=== PATIENT | female | born 1985 | race Caucasian/White ===

== ENCOUNTER 2024-07-04 01:54 | Emergency (ER) | payer MEDICAID ==
[2024-07-04] MEDS: Dextrose 5%-0.9% NaCl 1,000 ML IV SCH (02:57)
[2024-07-04] MEDS: Metoclopramide 10 MG/2 ML SDV IVPUSH ONE (03:00)
[2024-07-04] MEDS: diphenhydrAMINE 50 MG/ML SDV IVPUSH ONE (03:01)
[2024-07-04] MEDS: HYDROmorphone 1 MG/ML Syringe IVPUSH ONE (03:03)
== END 2024-07-04 04:15 | disposition home or self-care (01) ==
LOC: JD.ED 01:54
DX: G43.909 Migraine, unspecified, not intractable, without status migrainosus (principal); E66.9 Obesity, unspecified; Z86.16 Personal history of COVID-19; Z79.899 Other long term (current) drug therapy; Z88.0 Allergy status to penicillin; Z68.34 Body mass index [BMI] 34.0-34.9, adult
CPT/HCPCS: 96361; 96374; 96375; 99283; J1171; J1200; J2765; J7042

== ENCOUNTER 2024-10-04 17:42 | Emergency (ER) | payer MEDICAID ==
[2024-10-04] MEDS ORDERED: Sodium Chloride 0.9% 10 ML Syringe FLUSH PRN (18:45)
[2024-10-04 19:27] LABS: BASOPHILS PERCENT AUTO 0.3 % (0.0-1.0); EOSINOPHILS PERCENT AUTO 0.3 % (0.0-6.0); HEMATOCRIT 43.5 % (37.0-47.0); HEMOGLOBIN 14.2 gm/dl (12.0-16.0); IMMATURE GRAN ABSOLUTE AUTO 0.01 K/mm3 (0.00-0.05); IMMATURE GRAN PERCENT AUTO 0.1 % (0.0-0.4); LYMPHOCYTES ABSOLUTE AUTO 2.1 K/mm3 (1.0-4.8); LYMPHOCYTES PERCENT AUTO 21.8 % (24.0-44.0); MEAN CORPUSCULAR HEMOGLOBIN 29.4 pg (28.0-32.0); MEAN CORPUSCULAR HGB CONC 32.6 g/dl (32.0-36.0); MEAN CORPUSCULAR VOLUME 90.1 fl (83.0-99.0); MEAN PLATELET VOLUME 9.9 fl (9.4-12.3); MONOCYTES ABSOLUTE AUTO 0.4 K/mm3 (0.0-0.8); MONOCYTES PERCENT AUTO 3.9 % (0.0-8.0); NEUTROPHILS ABSOLUTE AUTO 7.2 K/mm3 (1.8-7.7); NEUTROPHILS PERCENT AUTO 73.6 % (41.0-71.0); PLATELET COUNT,PLT 333 K/mm3 (150-400); RED BLOOD CELL COUNT 4.83 M/mm3 (4.10-5.30); WHITE BLOOD CELL COUNT,WBC 9.72 K/mm3 (3.9-11.3)
[2024-10-04] MEDS: Metoclopramide 10 MG/2 ML SDV IVPUSH ONE (19:42)
[2024-10-04] MEDS: Ketorolac 30 MG/ML SDV IVPUSH ONE (19:42)
[2024-10-04] MEDS: diphenhydrAMINE 50 MG/ML SDV IVPUSH ONE (19:42)
[2024-10-04] MEDS: Sodium Chloride 0.9% 1,000 ML IV STA (19:42)
[2024-10-04 19:47] LABS: ALBUMIN 3.7 g/dl (3.4-5.0); ANION GAP 14.7 (5-15); BILIRUBIN TOTAL 0.3 mg/dL (0.2-1.0); CALCIUM 9.1 mg/dL (8.5-10.1); CREATININE 0.9 mg/dL (0.55-1.02); EST CRCL DRUG DOSING (CG) 74.77 mL/min; POTASSIUM,K 3.7 mEq/L (3.5-5.1); PROTEIN TOTAL,TP 7.4 g/dl (6.4-8.2)
== END 2024-10-04 21:28 | disposition home or self-care (01) ==
LOC: JD.ED 17:42
DX: G43.909 Migraine, unspecified, not intractable, without status migrainosus (principal); E66.9 Obesity, unspecified; Z86.16 Personal history of COVID-19; Z79.899 Other long term (current) drug therapy; Z88.0 Allergy status to penicillin; Z68.34 Body mass index [BMI] 34.0-34.9, adult
CPT/HCPCS: 36415; 80053; 85025; 96361; 96374; 96375; 99284; J1200; J1885; J2765; J7030